=== PATIENT | female | born 1995 | race Hispanic/Latino ===

== ENCOUNTER 2021-05-22 13:55 | Emergency (ER) | payer OTHER, SELFPAY ==
--- OUTSIDE RECORDS SUMMARY | 2021-05-22 13:58 | XMS REPORT | Continuity of Care Document ---
:1995 Author Organization [facility] t Address [address] [place] [address] Care Team Providers Name Role Phone Asked, Pcp Primary Care Physician Unavailable Suleman Juan DO Attending Clinician Payers Payer Name Policy Type Policy Number Effective Date Expiration Date S clare MEDICAIDMEDI [id number] 2020 [facility] [id number] 00:00:00 Hospital 2020-Pr esentMedicai d Problems This patient has no known problems. Allergies, Adverse Reactions, Alerts This patient has no known allergies or adverse reactions. Social History Social Habit Start Date Stop Date Quantity Comments Source ASSERTION 2020-08-08 [facility] 00:00:00 [facility] History SDOH [facility] al History SDDC [facility] Tobacco use and 2021-02-23 2021-02-23 Never used [facility] exposure 00:00:00 00:00:00 Hospital Alcohol intake 2021-02-23 2021-02-23 Lifetime [facility] 00:00:00 00:00:00 non-drinker Hospital (finding) History SDOH 2021-02-23 2021-02-23 1 [facility] Alcohol Frequency 00:00:00 00:00:00 Hospita l Sex Assigned At [birth year] [facility] 00:00:00 00:00:00 Hospital Smoking Status Start Date Stop Date Source Never smoker [facility] Medications Ordered Filled Start Stop Current Ordering Indication Dosage Frequency Signature Comments Components Source Medication Medication Date Date Medication? Clinician (SIG) Name Name penicillin 2020- No 500mg Q.25D Take 1 Me thodi v potassium 5-14 05-[address] (VEETID) 00:00: 04:59 (500 mg Hospi ta 500 MG 00 :00 total) by l tablet mouth 4 (four) times a day for 10 days. Vital Signs Vital Name Observation Time Observation Value Comments Source Systolic blood 2021-02-23 10:44:00 106 mm[Hg] Method [facility] Hospital pressure Diastolic blood 2021-02-23 10:44:00 64 mm[Hg] [facility] pressure Heart rate 2021-02-23 10:44:00 89 /min [facility] Respiratory rate 2021-02-23 10:44:00 16 /min [facility] Oxygen saturation in 2021-02-23 10:44:00 97 /min [facility] Arterial blood by Pulse oximetry Body height 2021-02-23 08:42:00 152.4 cm [facility] Body weight 2021-02-23 08:42:00 81.194 kg [facility] BMI 2021-02-23 08:42:00 34.96 kg/m2 [facility] Body temperature 2021-02-23 08:40:[address] [facility] Procedures Procedure Date / Time Performed Performing Clinician Sourc e [place] INJECTION AA&/STRD 2021-02-23 10:10:[address] [facility] OTHER PERIPHERAL [place] NERVE/BRANCH Encounters Start End Encounter Admission Attending Care Care Encounter Source Date/Time Date/Time Type Type Clinicians Facility Department ID 2021-02-23 2021-02-23 Emergency Lilly [id number] [facility] 03:43:00 05:54:[id number] [place] [id number] Hospit a [id number] l .8 2021-02-23 2021-02-23 Emergency [facility] [id number] [place] 00:00:00 00:00:00 ROJAS Castillo [address] Results Test Description Test Time Test Comments Results Result Sourc e Comments Dental [facility] 2021-02-10 [facility] 10:10:47 02/23/2021 5:36 AMDental BlockPerformed by: Rojas Juan DOAuthorized by: Rojas Juan DO Consent: Consent obtained: Verbal Consent given by: Patient Risks discussed: Infection, nerve damage, pain, swelling and unsuccessful block Alternatives discussed: Alternative treatmentIndication s: Indications: dental pain Location: Block type: Inferior alveolar Laterality: LeftProcedure details (see MAR for exact dosages): Syringe type: Luer lock syringe Needle gauge: 27 G Anesthetic injected: Lidocaine 2% w/o epi and bupivacaine 0.5% w/o epi (5cc) Injection procedure: Anatomic landmarks identified, introduced needle, anatomic landmarks palpated, negative aspiration for blood and incremental injectionPost-proce dure details: Outcome: Anesthesia achieved Patient tolerance of procedure: Tolerated well, no immediate complications Dental Block 2021-02-10 Rojas Juan dist 4 DO [place] [facility] 10:10:47 02/23/2021 5:36 AMDental BlockPerformed by: Rojas Juan, DOAuthorized by: Rojas Juan DO Consent: Consent obtained: Verbal Consent given by: Patient Risks discussed: Swelling, unsuccessful block, pain, infection, allergic reaction and nerve damage Alternatives discussed: Alternative treatmentIndication s: Indications: dental pain Location: Block type: Posterior superior alveolar Laterality: LeftProcedure details (see MAR for exact dosages): Syringe type: Luer lock syringe Needle gauge: 27 G Anesthetic injected: Lidocaine 2% w/o epi and bupivacaine 0.5% w/o epi (5cc)Post-procedure details: Outcome: Anesthesia achieved Patient tolerance of procedure: Tolerated well, no immediate complications
--- NOTE | 2021-05-22 14:44 | ER ---
Nurse's Notes [facility] Name: Maria Teresa Simms Age: 26 yrs Sex: Female : 1995 Arrival Date: 05/22/2021 Time: 14:01 Bed Waiting Private MD: Diagnosis: Nonpurulent mastitis associated with Presentation: 05/22 14:41 Chief complaint: Patient states: Right breast pain, fever x 1 day. Coronavirus screen: kg Client denies travel out of the [place] in the last 14 days. At this time, unable to obtain information related to travel outside the [place] At this time, the client does not indicate any symptoms associated with coronavirus-19. Ebola Screen: Patient negative for fever greater than or equal to 101.5 degrees Fahrenheit, and additional compatible Ebola Virus Disease symptoms Patient denies exposure to infectious person. Patient denies travel to an Ebola-affected area in the 21 days before illness onset. Initial Sepsis Screen: Does the patient meet any 2 criteria? No. Patient's initial sepsis screen is negative. Does the patient have a suspected source of infection? No. Patient's initial sepsis screen is negative. Risk Assessment: Do you want to hurt yourself or someone else? Patient reports no desire to harm self or others. Onset of symptoms was May 21, 2021. 14:41 Method Of Arrival: Ambulatory kg 14:41 Acuity: JAY 4 kg Triage Assessment: 14:42 General: Appears in no apparent distress. distressed, Behavior is calm, cooperative, kg appropriate for age, quiet. Pain: Complains of pain in Right breast Pain currently is 10 out of 10 on a pain scale. at worst was 10 out of 10 on a pain scale. level that patient reports is acceptable is 3 out of 10 on a pain scale. Quality of pain is described as burning, aching, throbbing, itching. 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 - Social history:: Smoking status: Patient denies any tobacco usage or history of. Vital Signs: 14:41 BP 113 / 57; Pulse 103; Resp 20; Temp 97.3(TE); Pulse Ox 100% ; Weight 81.65 kg; Height kg 5 ft. 3 in. (160.02 cm); Pain 10/10; 14:41 Body Mass Index 31.89 (81.65 kg, 160.02 cm) kg ED Course: 14:01 Patient arrived in ED. ds1 14:42 Triage completed. kg 14:42 Tiffany Albarado FNP-C [facility] kb 14:42 Scott Lemons MD is Attending Physician. kb 14:42 Arm band placed on right wrist. kg Administered Medications: No medications were administered Outcome: 14:44 Discharge ordered by . kb 15:10 Patient left the ED. kb Signatures: Tiffany Albarado FNP-C FNP-Ckb Sanford, Demi ds1 Tomasa Cote, RN RN kg Corrections: (The following items were deleted from the chart) 14:43 14:42 Home Meds: None; kg kg 14:43 14:42 Home Meds: None; kg kg
--- NOTE | 2021-05-22 14:45 | EDPHYS ---
Physician Documentation [facility] Name: Maria Teresa Simms Age: 26 yrs Sex: Female : 1995 Arrival Date: 05/22/2021 Time: 14:01 Bed Waiting Private MD: ED Physician Scott Lemons HPI: 05/22 15:08 This 26 yrs old Female presents to ER via Ambulatory with complaints of Breast kb Problem, Fever. 15:09 the patient presents with a swollen area of the right breast. Description: kb erythematous, swollen, warm. Onset: The symptoms/episode began/occurred 1 day(s) ago. Possible cause(s): . Associated signs and symptoms: Pertinent positives: erythema, fever, swelling, Pertinent negatives: discharge, drainage, foreign body sensation, headache, nausea, shortness of breath, vomiting. Modifying factors: the symptoms are alleviated by nothing, the symptoms are aggravated by nothing, pressure, touching. Severity of symptoms: At their worst the symptoms were mild, moderate, in the emergency department the symptoms are unchanged. The patient has not experienced similar symptoms in the past. The patient has not recently seen a physician. Pt reports redness, swelling and pain to right breast with fever. States she is 3 weeks PP and is . . 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 - Social history:: Smoking status: Patient denies any tobacco usage or history of. ROS: 15:08 Respiratory: Negative for shortness of breath, cough, wheezing, and pleuritic chest kb pain. 15:08 Constitutional: Positive for fever, Negative for body aches, chills, fatigue, malaise, poor PO intake, weight loss. 15:08 Skin: Positive for erythema, swelling, of the right breast. 15:08 All other systems are negative. Exam: 15:07 Constitutional: This is a well developed, well nourished patient who is awake, alert, kb and in no acute distress. Head/Face: Normocephalic, atraumatic. ENT: Moist Mucous membranes Respiratory: Respirations even and unlabored. No increased work of breathing, no retractions or nasal flaring. MS/ Extremity: Pulses equal, no cyanosis. Neurovascular intact. Full, normal range of motion. Neuro: Awake and alert, GCS 15, oriented to person, place, time, and situation. Moves all extremities. Normal gait. Psych: Awake, alert, with orientation to person, place and time. Behavior, mood, and affect are within normal limits. 15:07 Skin: cellulitis, that is mild, on the right breast. Vital Signs: 14:41 BP 113 / 57; Pulse 103; Resp 20; Temp 97.3(TE); Pulse Ox 100% ; Weight 81.65 kg; Height kg 5 ft. 3 in. (160.02 cm); Pain 10/10; 14:41 Body Mass Index 31.89 (81.65 kg, 160.02 cm) kg MDM: 14:42 Patient medically screened. kb 15:07 Data reviewed: vital signs, nurses notes. Data interpreted: Pulse oximetry: on room air kb is 100 %. Interpretation: normal. Counseling: I had a detailed discussion with the patient and/or guardian regarding: the historical points, exam findings, and any diagnostic results supporting the discharge/admit diagnosis, the need for outpatient follow up, a family practitioner, to return to the emergency department if symptoms worsen or persist or if there are any questions or concerns that arise at home. Administered Medications: No medications were administered Disposition: 17:22 Co-signature as Attending Physician, Scott Lemons MD I agree with the assessment and rn plan of care. Attestation: The patient's history, exam findings, diagnostics, and a summary of any interventions or procedures was reviewed in detail with Tiffany AGUILAR. Disposition Summary: 05/22/21 14:44 Discharge Ordered Location: Home kb Condition: Stable kb Diagnosis - Nonpurulent mastitis associated with kb Followup: kb - With: Emergency Department - When: As needed - Reason: Worsening of condition Followup: kb - With: Private Physician - When: 2 - 3 days - Reason: Recheck today's complaints, Continuance of care, Re-evaluation by your physician Discharge Instructions: - Discharge Summary Sheet kb - and Mastitis kb Forms: - Medication Reconciliation Form kb - Thank You Letter kb - Antibiotic Education kb - Prescription Opioid Use kb Prescriptions: - Dicloxacillin 500 mg Oral Capsule - take 1 capsule by ORAL route every 6 hours for 14 days; 56 capsule; Refills: 0, kb Product Selection Permitted Signatures: Tiffany Albarado FNP-C FNP-Ckb Nieto, Roman, MD MD rn Graham, Kristen, RN RN kg Corrections: (The following items were deleted from the chart) 14:43 14:42 Home Meds: None; kg kg 14:43 14:42 Home Meds: None; kg kg
[2021-05-22 15:15] VITALS: BP 113/57; TEMP 97.3; O2SAT 100
== END 2021-05-22 15:10 | disposition home or self-care (01) ==
LOC: ER 13:55
DX: O91.23 Nonpurulent mastitis associated with lactation (principal)
CPT/HCPCS: 99281

== ENCOUNTER 2022-02-08 18:00 | Emergency (ER) | payer OTHER ==
--- OUTSIDE RECORDS SUMMARY | 2022-02-08 18:03 | XMS REPORT | Continuity of Care Document ---
:1995 Author Organization [facility] t Address [address] [place] [address] Care Team Providers Name Role Phone Asked, Pcp Primary Care Physician Unavailable [place] Juan DO Attending Clinician Payers Payer Name Policy Type Policy Number Effective Date Expiration Date S diomedes MEDICAIDMEDI [id number] 2020 [facility] [id number] 00:00:00 Hospital 2020-Pr esentMedicai d Problems This patient has no known problems. Allergies, Adverse Reactions, Alerts This patient has no known allergies or adverse reactions. Social History Social Habit Start Date Stop Date Quantity Comments Source ASSERTION 2020-08-08 [facility] 00:00:00 [facility] History SDOH [facility] Hospit al History SDNH [facility] Tobacco use and 2021-02-23 2021-02-23 Never used [facility] exposure 00:00:00 00:00:00 Hospital Alcohol intake 2021-02-23 2021-02-23 Lifetime [facility] 00:00:00 00:00:00 non-drinker Hospital (finding) History SDOH 2021-02-23 2021-02-23 1 [facility] Alcohol Frequency 00:00:00 00:00:00 Hospita l Sex Assigned At [birth year] [facility] 00:00:00 00:00:00 Hospital Smoking Status Start Date Stop Date Source Never smoker [facility] Medications Ordered Filled Start Stop [...] Name Observation Time Observation Value Comments Source Oxygen saturation in 2021-02-23 10:44:00 97 /min [facility] Arterial blood by Pulse oximetry Systolic blood 2021-02-23 10:44:00 106 mm[Hg] Method [facility] pressure Diastolic blood 2021-02-23 10:44:00 64 mm[Hg] [facility] pressure Heart rate 2021-02-23 10:44:00 89 /min [facility] Respiratory rate 2021-02-23 10:44:00 16 /min [facility] Body height 2021-02-23 08:42:00 152.4 cm [facility] Body weight 2021-02-23 08:42:00 81.194 kg [facility] BMI 2021-02-23 08:42:00 34.96 kg/m2 [facility] Body temperature 2021-02-23 08:40:00 36.61 [facility] Procedures Procedure Date / Time Performed Performing Clinician Sourc e [place] INJECTION AA&/STRD 2021-02-23 [facility]10[facility] [place] NERVE/BRANCH Encounters Start End Encounter Admission Attending Care Care Encounter Source Date/Time Date/Time Type Type Clinicians Facility Department ID 2021-02-23 2021-02-23 Emergency Cricket [id number] [facility] 03:43:00 05:54:[id number] [place] [id number] Hospit [id number] .8 Results Test Description Test Time Test Comments Results Result Sourc e Comments Dental Block 2021-02-10 Rojas Juan 4 DO [place] [facility] 10:10:47 02/23/2021 5:36 AMDental BlockPerformed by: Rojas [...] 2021-02-10 Rojas Juan dist 4 DO [place] [facility] 10:10:47 02/23/2021 5:36 AMDental BlockPerformed by: Rojas [...]
[2022-02-08] MEDS ORDERED: KETOROLAC 30 MG/ML INJ ONE (18:33)
--- NOTE | 2022-02-08 18:56 | RAD REPORT ---
EXAM DESCRIPTION: RAD - Ankle Left 3 View -02/08/2022 6:38 pm CLINICAL HISTORY: Left ankle pain status post injury FINDINGS: No fracture or dislocation is seen.
--- NOTE | 2022-02-08 19:40 | ER ---
Nurse's Notes [facility] Name: Maria Teresa Simms Age: 27 yrs Sex: Female : 1995 Arrival Date: 02/08/2022 Time: 18:03 Bed 11 Private MD: Diagnosis: Sprain of ankle Presentation: 02/08 18:14 Chief complaint: Patient states: "I was walking at the park and tripped over a branch iw and fell, hurting my left ankle.". Coronavirus screen: Vaccine status: Patient reports being unvaccinated. Client denies travel out of the [place] in the last 14 days. At this time, the client does not indicate any symptoms associated with coronavirus-19. Ebola Screen: Patient negative for fever greater than or equal to 101.5 degrees Fahrenheit, and additional compatible Ebola Virus Disease symptoms Patient denies exposure to infectious person. Patient denies travel to an Ebola-affected area in the 21 days before illness onset. No symptoms or risks identified at this time. Initial Sepsis Screen: Does the patient meet any 2 criteria? No. Patient's initial sepsis screen is negative. Does the patient have a suspected source of infection? No. Patient's initial sepsis screen is negative. Risk Assessment: Do you want to hurt yourself or someone else? Patient reports no desire to harm self or others. Onset of symptoms is unknown. 18:14 Method Of Arrival: Wheelchair iw 18:14 Acuity: JAY 4 iw Triage Assessment: 18:15 General: Appears in no apparent distress. uncomfortable, Behavior is anxious. Pain: iw Complains of pain in left foot. Neuro: Level of Consciousness is awake, alert, obeys commands, Oriented to person, place, time, situation, Appropriate for age. Musculoskeletal: Reports pain in left foot. 18:16 Respiratory: Airway is patent Respiratory effort is even, unlabored, Respiratory iw pattern is regular, symmetrical. Historical: - Allergies: 18:15 NKDA; iw - PSHx: 18:15 section; iw - Immunization history:: Adult Immunizations up to date. - Social history:: Smoking status: Patient denies any tobacco usage or history of. Screenin:43 Abuse screen: Denies threats or abuse. Denies injuries from another. Nutritional iw screening: No deficits noted. Tuberculosis screening: No symptoms or risk factors identified. Fall Risk None identified. Assessment: 18:42 General: Appears uncomfortable, Behavior is calm, cooperative. Pain: Complains of pain iw in left lateral ankle and anterior aspect of left ankle and left foot. Neuro: Level of Consciousness is awake, alert, obeys commands, Oriented to person, place, time, situation. Cardiovascular: Patient's skin is warm and dry. Respiratory: Respiratory effort is even, unlabored, Respiratory pattern is regular. Derm: Skin is intact, is healthy with good turgor. Musculoskeletal: Range of motion: intact in all extremities. 19:30 Reassessment: Patient and/or family updated on plan of care and expected duration. Pain ag7 level reassessed. Patient is alert, oriented x 3, equal unlabored respirations, skin warm/dry/pink. Resumption of care pain 5/10 left ankle, constant, decreased ROM. Vital Signs: 18:14 BP 129 / 96; Pulse 112; Resp 17; Temp 98.6; Pulse Ox 99% ; Weight 72.57 kg; Height 5 iw ft. 0 in. (152.40 cm); Pain 10/10; 19:42 BP 105 / 58 (auto/); Pulse 80; Resp 20 S; Pulse Ox 100% on R/A; Pain 4/10; ag7 18:14 Body Mass Index 31.25 (72.57 kg, 152.40 cm) iw ED Course: 18:03 Patient arrived in ED. as 18:04 Albaro Chua PA is PHCP. [facility] 18:04 Parish Joseph MD is Attending Physician. [facility] 18:15 Triage completed. iw 18:16 Arm band placed on right wrist. iw 18:32 Alexa Patrick, RN is Primary Nurse. iw 18:40 Ankle Left 3 View XRAY In Process Unspecified. EDMS 18:43 Patient did not have IV access during this emergency room visit. iw 19:32 Patient has correct armband on for positive identification. Call light in reach. ag7 19:32 No provider procedures requiring assistance completed. ag7 19:39 Dinesh Carr MD is Referral Physician. [facility] Administered Medications: 18:32 Drug: Ketorolac 30 mg Route: IM; Site: right deltoid; iw 19:00 Follow up: Response: No adverse reaction iw Outcome: 19:39 Discharge ordered by . delon 20:09 Discharged to home via wheelchair. ag7 20:09 Condition: stable 20:09 Discharge instructions given to patient, Instructed on discharge instructions, follow up and referral plans. medication usage, Demonstrated understanding of instructions, follow-up care, medications, Prescriptions given X 2. 20:10 Patient left the ED. ag7 Signatures: Dispatcher [employer] EDMS Albaro Chua PA PA jmm Martinez, Amelia as Williams, Irene, JOEL RN Sabrina Escoto RN RN ag7
--- NOTE | 2022-02-08 19:40 | EDPHYS ---
Physician Documentation [facility] Name: Maria Teresa Simms Age: 27 yrs Sex: Female : 1995 Arrival Date: 02/08/2022 Time: 18:03 Bed 11 Private MD: ED Physician Parish Joseph HPI: 02/08 18:22 This 27 yrs old Female presents to ER via Wheelchair with complaints of Ankle jmm Injury. 18:22 The patient presents with an injury. Onset: The symptoms/episode began/occurred jmm acutely, just prior to arrival. Associated signs and symptoms: Pertinent positives: swelling. This is a 27-year-old female no chronic conditions presents emerged part with complaints of left ankle swelling and pain after rolling her ankle just prior to arrival. Patient denies other injury.. Historical: - Allergies: 18:15 NKDA; iw - PSHx: 18:15 section; iw - Immunization history:: Adult Immunizations up to date. - Social history:: Smoking status: Patient denies any tobacco usage or history of. ROS: 18:22 Constitutional: Negative for fever, chills, and weight loss, Cardiovascular: Negative jmm for chest pain, palpitations, and edema, Respiratory: Negative for shortness of breath, cough, wheezing, and pleuritic chest pain. 18:22 MS/extremity: Positive for injury or acute deformity. 18:22 All other systems are negative. Exam: 18:22 Constitutional: This is a well developed, well nourished patient who is awake, alert, jmm and in no acute distress. Head/Face: atraumatic. Eyes: EOMI, no conjunctival erythema appreciated ENT: Moist Mucus Membranes Neck: Trachea midline, Supple Chest/axilla: Normal chest wall appearance and motion. Cardiovascular: Regular rate and rhythm. No edema appreciated Respiratory: Normal respirations, no respiratory distress appreciated Abdomen/GI: Non distended, soft Back: Normal ROM Skin: General appearance color normal 18:22 Musculoskeletal/extremity: Swelling appreciated to the left ankle, anterior pain on palpation, no pain to the base of the fifth met tarsal, full dorsalis pedis pulse, neurovascular intact. 18:22 Skin: Appearance: Color: normal in color. 18:22 Neuro: Exam negative for Orientation: is normal, Mentation: is normal, Memory: is normal. 18:22 Psych: Behavior/mood is pleasant, cooperative. Vital Signs: 18:14 BP 129 / 96; Pulse 112; Resp 17; Temp 98.6; Pulse Ox 99% ; Weight 72.57 kg; Height 5 iw ft. 0 in. (152.40 cm); Pain 10/10; 19:42 BP 105 / 58 (auto/); Pulse 80; Resp 20 S; Pulse Ox 100% on R/A; Pain 4/10; ag7 18:14 Body Mass Index 31.25 (72.57 kg, 152.40 cm) iw MDM: 18:20 Patient medically screened. [facility] 19:38 Data reviewed: vital signs, nurses notes. Counseling: I had a detailed discussion with [facility] the patient and/or guardian regarding: the historical points, exam findings, and any diagnostic results supporting the discharge/admit diagnosis, radiology results, the need for outpatient follow up, to return to the emergency department if symptoms worsen or persist or if there are any questions or concerns that arise at home. ED course: Patient is alert nontoxic appearance in the ED. X-rays negative. Patient advised follow-up with PCP or orthopedics otherwise given strict return precautions. Patient understood agrees to plan of care.. 02/08 18:22 Order name: Ankle Left 3 View XRAY; Complete Time: 19:04 [facility] 02/08 19:06 Order name: wrap-joint [facility] Administered Medications: 18:32 Drug: Ketorolac 30 mg Route: IM; Site: right deltoid; iw 19:00 Follow up: Response: No adverse reaction Disposition: 02/09 15:43 Co-signature as Attending Physician, Parish Joseph MD I agree with the assessment and kdr plan of care. Disposition Summary: 02/08/22 19:39 Discharge Ordered Location: Home [facility] Condition: Stable [facility] Diagnosis - Sprain of ankle [facility] Followup: [facility] - With: Dinesh Carr MD - When: 2 - 3 days - Reason: Recheck today's complaints, Continuance of care, Re-evaluation by your physician Discharge Instructions: - Discharge Summary Sheet [facility] - Ankle Sprain [facility] Forms: - Work release form [facility] - Medication Reconciliation Form [facility] - Thank You Letter [facility] - Antibiotic Education [facility] - Prescription Opioid Use [facility] Prescriptions: - Diclofenac Sodium 75 mg Oral Tablet Sustained Release - take 1 tablet by ORAL route 2 times per day; 30 tablet; Refills: 0, Product [facility] Selection Permitted - orphenadrine citrate 100 mg Oral Tablet Sustained Release - take 1 tablet by ORAL route 2 times per day As needed; 20 tablet; Refills: 0, [facility] Product Selection Permitted - CRUTCHES - take 1 application by TOPICAL route one time; 1 Unspecified; Refills: 0, [facility] Product Selection Permitted Signatures: Dispatcher [employer] Parish Fonseca MD MD kdr Mickail, Joel, PA PA jmm Williams, Irene RN RN iw
[2022-02-08 21:49] VITALS: TEMP 98.6
[2022-02-08 21:50] VITALS: BP 105/58; O2SAT 100
== END 2022-02-08 20:10 | disposition home or self-care (01) ==
LOC: ER 18:00
DX: S93.402A Sprain of unspecified ligament of left ankle, initial encounter (principal)
CPT/HCPCS: 96372; 99283